=== PATIENT | male | born 1970 | race Caucasian/White ===

== ENCOUNTER 2016-04-17 19:28 | Emergency (ER) | payer BC ==
[~2016-04-17] VITALS: Ht 172.7 cm; Wt 104.3 kg
[~2016-04-17 19:28] MED LIST: 'PARAFON FORTE500 M1 PO; AMITRIPTYLINE25 MG PO; AMOXICILLIN500 MG PO; ANTIVERT25 MG PO; ATOXIMETIN-B1 CAP PO; AUGMENTIN 875875 MG PO; B12 PO; BENTYL10 MG PO; BENTYL20 MG PO; Carafate1 GM PO; DEBROX 15ML 1515 ML OT; ERYTHROMYCIN PO; FLEXERIL10 MG PO; FLEXERIL5 MG PO; FOLIC ACID; FOLIC ACID0.8 MG PO; IBU800 MG PO; MOBIC7.5 MG PO; MOTRIN800 MG PO; NAPROSYN500 MG PO; NEXIUM40 MG PO; OMEPRAZOLE DR20 M1 PO; OMEPRAZOLE40 MG PO; PREDNICOT10 MG PO; PREDNICOT20 MG PO; PREDNISONE10 MG PO; TIZANIDINE HCL4 MG PO; TRAMADOL HCL50 MG PO; VALIUM10 MG PO; ZOFRAN ODT4 MG SL; ZOLOFT25 MG PO; Zofran4 MG PO; [UNRECOGNIZED DRUG - OTHER]
[2016-04-17 20:38] LABS: BASO % 0.8 % (0.0-1.0); EOS # 0.1 10*3/uL (0.0-0.4); EOS % 1.5 % (1.0-4.0); HEMATOCRIT 43.8 % (42.0-52.0); HEMOGLOBIN 14.8 g/dl (14.0-18.0); LYMPH # 1.6 10*3/uL (1.3-4.4); LYMPH % 41.3 % (27.0-41.0); MEAN CELL VOLUME 92.4 fl (80.0-94.0); MEAN CORPUSCULAR HGB 31.2 pg (27.0-31.0); MEAN CORPUSCULAR HGB CONC 33.8 g/dl (33.0-37.0); MONO # 0.4 10*3/uL (0.1-1.0); MONO % 9.8 % (3.0-9.0); NEUT # 1.9 10*3/uL (2.3-7.9); NEUT % 46.6 % (47.0-73.0); PLATELET COUNT AUTOMATED 181 10*3/uL (130-400); RED BLOOD COUNT 4.74 10*6/uL (4.50-5.90); RED CELL DISTRI WIDTH 12.2 % (0-14.5)
[2016-04-17 20:55] LABS: ALBUMIN 3.7 gm/dl (3.1-4.5); ALKALINE PHOSPHATASE 84 U/L (45-117); BILIRUBIN, TOTAL 0.3 mg/dl (0.2-1.0); BUN 11 mg/dl (7-24); CARBON DIOXIDE 27 mmol/L (21-32); CHLORIDE 109 mmol/L (98-107); EST GLOM FILT AFRICAN AMERICAN > 60 ml/min; GLUCOSE 98 mg/dL (65-99); POTASSIUM 4.1 mmol/L (3.5-5.1); SGOT/AST 18 IU/L (3-35); SGPT/ALT 29 U/L (12-78); SODIUM 144 mmol/L (136-145); TOTAL PROTEIN 7.2 gm/dL (6.4-8.2)
[2016-04-17 20:59] LABS: CKMB 1.1 ng/ml (0.5-3.6); MAGNESIUM 2.2 mg/dL (1.5-2.1)
== END 2016-04-17 21:51 | disposition home or self-care (01) ==
LOC: ED 19:28
PROVIDERS: Nurse Practitioner Family
DX: M47.22 Other spondylosis with radiculopathy, cervical region (principal); K21.9 Gastro-esophageal reflux disease without esophagitis; Z88.6 Allergy status to analgesic agent

== ENCOUNTER 2016-11-26 09:44 | Emergency (ER) | payer BC ==
[~2016-11-26] VITALS: Wt 104.3 kg
== END 2016-11-26 11:47 | disposition home or self-care (01) ==
LOC: ED 09:44
DX: S43.004A Unspecified dislocation of right shoulder joint, initial encounter (principal); R03.0 Elevated blood-pressure reading, without diagnosis of hypertension; Z88.6 Allergy status to analgesic agent; Z79.899 Other long term (current) drug therapy; W51.XXXA Accidental striking against or bumped into by another person, initial encounter; Y93.89 Activity, other specified; Y92.89 Other specified places as the place of occurrence of the external cause; Y99.8 Other external cause status

== ENCOUNTER 2017-01-22 13:21 | Emergency (ER) | payer BC ==
[~2017-01-22] VITALS: Ht 175.2 cm; Wt 104.3 kg
== END 2017-01-22 14:51 | disposition home or self-care (01) ==
LOC: ED 13:21
DX: S51.812A Laceration without foreign body of left forearm, initial encounter (principal); K21.9 Gastro-esophageal reflux disease without esophagitis; Z88.6 Allergy status to analgesic agent; Z79.899 Other long term (current) drug therapy; W45.8XXA Other foreign body or object entering through skin, initial encounter; Y93.89 Activity, other specified; Y92.89 Other specified places as the place of occurrence of the external cause; Y99.8 Other external cause status

== ENCOUNTER → 2018-02-15 | Outpatient (CLI) | payer BC | END | disposition home or self-care (01) | LOC: US 02-13 07:30 | DX: R10.12 Left upper quadrant pain (principal); R11.0 Nausea ==

== ENCOUNTER → 2018-05-20 | Outpatient (CLI) | payer BC ==
[~2018-05-20] MED LIST changes: +CYCLOBENZAPRINE10 MG PO; +Motrin,Rufen800 MG PO
== END | disposition home or self-care (01) ==
LOC: NM 06:59
DX: K31.84 Gastroparesis (principal)

== ENCOUNTER 2018-12-31 13:50 | Emergency (ER) | payer BC ==
[~2018-12-31] VITALS: Ht 175.2 cm; Wt 110.2 kg
[2018-12-31] MEDS ORDERED: CEPHALEXIN500 M1 PO (15:22)
== END 2018-12-31 15:39 | disposition home or self-care (01) ==
LOC: ED 13:50
DX: S80.851A Superficial foreign body, right lower leg, initial encounter (principal); Z79.899 Other long term (current) drug therapy; Z88.6 Allergy status to analgesic agent; W22.8XXA Striking against or struck by other objects, initial encounter; Y93.89 Activity, other specified; Y92.89 Other specified places as the place of occurrence of the external cause; Y99.9 Unspecified external cause status

== ENCOUNTER 2020-03-25 10:36 | Emergency (ER) | payer BC ==
[~2020-03-25] VITALS: Ht 172.7 cm; Wt 111.1 kg
[~2020-03-25 10:36] MED LIST changes: +CEPHALEXIN500 M1 PO
== END 2020-03-25 13:17 | disposition home or self-care (01) ==
LOC: ED 10:36
DX: U07.1 COVID-19 (principal); Z79.82 Long term (current) use of aspirin; Z79.899 Other long term (current) drug therapy